=== PATIENT | female | born 1995 | race African-American/Black ===

== ENCOUNTER 2020-07-16 22:01 | Emergency (ER) | payer SELFPAY ==
[~2020-07-16] VITALS: Ht 160 cm; Wt 64.3 kg
[2020-07-16 22:04] VITALS: BP 125/65
[2020-07-16 23:18] LABS: CLARITY URINE CLOUDY (CLEAR); COLOR URINE YELLOW (YELLOW); KETONES URINE NEGATIVE (NEGATIVE); LEUKOCYTE ESTERASE URINE NEGATIVE (NEGATIVE); NITRITE URINE NEGATIVE (NEGATIVE); OCCULT BLOOD URINE NEGATIVE (NEGATIVE); PROTEIN URINE 1+ (NEGATIVE); SPECIFIC GRAVITY URINE 1.037 (1.005-1.030)
== END 2020-07-17 00:15 | disposition home or self-care (01) ==
LOC: ER 22:01
DX: R06.00 Dyspnea, unspecified (principal); R07.89 Other chest pain
CPT/HCPCS: 71045; 81003; 81025; 93005; 99285